=== PATIENT | male | born 1985 | race Two or more races ===

== ENCOUNTER 2016-04-27 00:47 | Emergency (ER) | payer OTHER ==
[~2016-04-27] VITALS: Ht 167.6 cm; Wt 74.8 kg
[2016-04-27] MEDS ORDERED: NKM (00:53)
[2016-04-27] MEDS ORDERED: TdaP Vaccine 0.5ml Syr IM ONE (01:00)
--- NOTE | 2016-04-27 01:02 | Emergency Room Report ---
History of Present Illness General Chief Complaint: Laceration Source: Patient Present Illness HPI Is a 30-year-old male who is right-hand dominant. He works at a nearby restaurant. He presents with laceration to his left thumb. He was cleaning a wine glass and it broke. The stamp stabbing in the left thumb. No other injury. Does not know if this piece of glass in there. It was bleeding initially. Stopped now. No other complaint. Tetanus is up-to-date. Allergies: Coded Allergies: No Known Allergies (Unverified , 04/27/16) Patient History Past Medical History: none, see triage record, old chart reviewed Past Surgical History: none Pertinent Family History: none Social History: Denies: smoking Immunizations: UTD Reviewed Nursing Documentation: PMH: Agreed, PSxH: Agreed Nursing Documentation-PMH Past Medical History: No Stated History Review of Systems Eye: Denies: blurred vision, eye pain ENT: Denies: ear pain, nose congestion, throat swelling Respiratory: Denies: cough, shortness of breath Cardiovascular: Denies: chest pain, palpitations Gastrointestinal: Denies: abdominal pain, diarrhea, nausea, vomiting Musculoskeletal: Denies: back pain, joint pain Skin: Denies: rash Neurological: Denies: headache, numbness Endocrine: Denies: increased thirst, increased urine Hematologic/Lymphatic: Denies: easy bruising All Other Systems: negative except mentioned in HPI Physical Exam Vital Signs Date Time Temp Pulse Resp B/P Pulse Ox O2 Delivery O2 Flow Rate FiO2 04/27/16 00:48 97.5 76 16 108/83 99 Room Air vitals normal Sp02 EP Interpretation: reviewed, normal General Appearance: well appearing, no apparent distress, alert Head: normocephalic, atraumatic Eyes: bilateral eye EOMI, bilateral eye PERRL ENT: hearing grossly normal, normal pharynx Neck: full range of motion, supple, no meningismus Respiratory: chest non-tender, lungs clear, normal breath sounds Cardiovascular #1: regular rate, rhythm, no murmur Gastrointestinal: normal bowel sounds, non tender, no mass, no organomegaly, no bruit, non-distended Musculoskeletal: back normal, gait/station normal, normal range of motion, other - Left thumb: 1 cm laceration at the base of the thumb. Full range of motion. No deformity. No bleeding. Sensation normal. Neurologic: alert, oriented x3 Psychiatric: mood/affect normal Skin: warm/dry Procedures Laceration/Wound Repair Laceration/Wound Repair : Consent: Verbal Wound Location: upper extremity Wound's Depth, Shape: linear Wound Length (cm): 1 Wound Explored: clean Irrigated w/ Saline (ccs): 500 Betadine Prep?: Yes Anesthesia: 1% Lidocaine Volume Anesthetic (ccs): 1 Wound Repaired With: sutures Suture Size/Type: 6:0, proline Number of Sutures: 2 Patient Tolerated: Well Complications: None Medical Decision Making Diagnostic Impression: Primary Impression: Laceration of thumb, left Qualified Codes: S61.012A - Laceration without foreign body of left thumb without damage to nail, initial encounter ER Course Patient presents with laceration of left thumb. No foreign body. No tendon laceration. We'll discharge home. Low risk for infection. Other X-Ray Diagnostic Results Other X-Ray Diagnostic Results : X-Ray Ordered: X-ray left thumb Date: Apr 27, 2016 Time: 01:02 EP Interpretation: Yes Findings: no fractures, no dislocation, no soft tissue swelling Number of Views: 3 Last Vital Signs Date Time Temp Pulse Resp B/P Pulse Ox O2 Delivery O2 Flow Rate FiO2 04/27/16 00:48 97.5 76 16 108/83 99 Room Air Status: improved Disposition: HOME, SELF-CARE Condition: Stable Patient Instructions: Laceration Care, Adult Additional Instructions: Follow up with Worker's CompRuth Whitney in 7 days for suture removal. Return if worse. ZACHARIAH CORRALES M.D. Apr 27, 2016 01:02
[2016-04-27 01:03] VITALS: BP 110/82
[2016-04-27 01:30] VITALS: BP 110/82
--- NOTE | 2016-04-27 13:55 | Diagnostic Imaging Report ---
Indication: TRAUMA Technique: 3 views of the left thumb Comparison: None Findings: No acute fractures. No dislocations. Joint spaces are preserved Impression: Negative
== END 2016-04-27 01:30 | disposition home or self-care (01) ==
LOC: EMR 00:58
DX: S61.012A Laceration without foreign body of left thumb without damage to nail, initial encounter (principal); W25.XXXA Contact with sharp glass, initial encounter; Y93.G1 Activity, food preparation and clean up; Y92.511 Restaurant or cafe as the place of occurrence of the external cause; Y99.0 Civilian activity done for income or pay